=== PATIENT | female | born 1990 | race Hispanic/Latino ===

== ENCOUNTER 2018-03-26 19:41 | Emergency (ER) | payer BC, OTHER ==
[~2018-03-26] VITALS: Ht 157.5 cm; Wt 81.6 kg
--- NOTE | 2018-03-26 21:04 | Diagnostic Imaging Report ---
EXAMINATION: CHEST SINGLE (PORTABLE) INDICATION: ^CHEST PAIN COMPARISON: None FINDINGS: AP view TUBES and LINES: None. LUNGS: Lungs are not well inflated. Bilateral peribronchial cuffing. There is mild prominence of the central pulmonary vasculature, consistent with pulmonary venous congestion. PLEURA: No pleural effusion or pneumothorax. HEART AND MEDIASTINUM: The cardiomediastinal silhouette is unremarkable. BONES AND SOFT TISSUES: No acute osseous lesion. Soft tissues are unremarkable. UPPER ABDOMEN: No free air under the diaphragm. IMPRESSION: Peribronchial cuffing and central pulmonary venous congestion. This likely represent viral etiology or reactive airway. Signed by: Dr. Vamsi Sinha M.D. on 03/26/2018 9:01 PM
[2018-03-26] MEDS ORDERED: DEXAMETHASONE SOD PHOS 10 MG/1 ML VIAL IM NR (21:45)
[2018-03-26] MEDS ORDERED: ACETAMINOPHEN/CODEINE ELIX 120-12 MG/5 ML UDC NG ONE (22:30)
[2018-03-26] MEDS ORDERED: ACETAMINOPHEN/CODEINE 300MG - 30MG TAB PO ONE (23:00)
[2018-03-27] MEDS ORDERED: ALBUTEROL/IPRATROPIUM 3 ML NEB NEB ONE (00:30)
== END 2018-03-27 01:00 | disposition home or self-care (01) ==
LOC: ER 19:41
DX: R50.9 Fever, unspecified (principal); R05 Cough; J12.9 Viral pneumonia, unspecified; B34.9 Viral infection, unspecified
CPT/HCPCS: 71045; 87400; 94640; 99283; J1100; 83518

== ENCOUNTER 2018-06-02 16:30 | Emergency (ER) | payer OTHER ==
[~2018-06-02] VITALS: Ht 157.5 cm; Wt 93.9 kg
--- OUTSIDE RECORDS SUMMARY | 2018-06-02 16:32 | XMS REPORT ---
[facility] Unknown Phone Unavailable Care Team Providers Care Instrument Mechanic Name Role Phone Lucero GARRETT Unavailable Unavailable Problems This patient has no known problems. Allergies, Adverse Reactions, Alerts This patient has no known allergies or adverse reactions. Medications This patient has no known medications. Results Test Description Test Time Test Comments Text Results Atomic Results Result Comments CHEST SINGLE (PORTABLE) 2018-03-26 21:00:00 [place] [id number] Patient Name: MAKAYLA PEARCE MR #: [id number] : 1990 Age/Sex: 27/F Req #: [id number] Adm Physician: Ordered by: LAINEY GARRETT MD Report #: [id number] Location: ER Room/Bed: Procedure: [id number] DX/CHEST SINGLE (PORTABLE) Exam Date: 03/26/18 Exam Time: 2029 REPORT STATUS: Signed EXAMINATION: CHEST SINGLE (PORTABLE) INDICATION: CHEST PAIN COMPARISON: None FINDINGS: AP view TUBES and LINES: None. LUNGS: Lungs are not well inflated. Bilateral peribronchial cuffing. There is mild prominence of the central pulmonary vasculature, consistent with pulmonary venous congestion. PLEURA: No pleural effusion or pneumothorax. HEART AND MEDIASTINUM: The cardiomediastinal silhouette is unremarkable. BONES AND SOFT TISSUES: No acute osseous lesion. Soft tissues are unremarkable. UPPER ABDOMEN: No free air under the diaphragm. IMPRESSION: Peribronchial cuffing and central pulmonary venous congestion. This likely represent viral etiology or reactive airway. Signed by: Dr. Allison Sinha M.D. on 03/26/2018 9:01 PM Dictated By: ALLISON SINHA MD 00 Transcribed By: MARIELA on 03/26/182100 COPY TO: LAINEY GARRETT MD
[2018-06-02] MEDS ORDERED: ALBUTEROL/IPRATROPIUM 3 ML NEB NEB ONE ×2 (17:00)
[2018-06-02] MEDS ORDERED: METHYLPREDNISOLONE SOD SUCC 125 MG/2ML VIAL IV ONE (17:00)
[2018-06-02] MEDS ORDERED: SODIUM CHLORIDE 0.9% 1000ML 1,000 ML IV ONE (17:00)
[2018-06-02] MEDS ORDERED: ONDANSETRON HCL INJ 2MG/ML 2ML 2 MG/ML VIAL IV STA (17:07)
--- NOTE | 2018-06-02 17:58 | Diagnostic Imaging Report ---
EXAM: CXR 2 VIEW - HOPD, PA and lateral DATE: 06/02/2018 Time stamp on exam: 5:19 PM INDICATION: Cough and fever COMPARISON: None FINDINGS: LINES/TUBES: None LUNGS: No consolidations or edema. PLEURA: No effusions or pneumothorax. HEART AND MEDIASTINUM: Normal size and contour. BONES AND SOFT TISSUES: There is a significant sized rudimentary cervical rib on the right side. There are clips in the right upper quadrant of the abdomen from a previous cholecystectomy. IMPRESSION: 1. No acute thoracic abnormality. 2. Right cervical rib. Signed by: Dr. Omid Jc DO on 06/02/2018 5:54 PM
[2018-06-02] MEDS ORDERED: AZITHROMYCIN250 MG PO (18:21)
[2018-06-02] MEDS ORDERED: PREDNISONE20 MG PO (18:22)
[2018-06-02] MEDS ORDERED: CHERATUSSIN AC118 ML PO (18:25)
[2018-06-02] MEDS ORDERED: PROAIR HFA INH8.5 GM INH (18:30)
[2018-06-02 18:42] VITALS: BP 113/66
== END 2018-06-02 18:45 | disposition home or self-care (01) ==
LOC: FSED 16:30
DX: R50.9 Fever, unspecified (principal); R05 Cough; J02.9 Acute pharyngitis, unspecified; J20.8 Acute bronchitis due to other specified organisms
CPT/HCPCS: 71046; 80053; 81003; 81025; 85025; 87400; 99284; J2405; J2930; J7030

== ENCOUNTER 2019-07-22 12:56 | Emergency (ER) | payer BC, OTHER ==
[~2019-07-22] VITALS: Ht 162.6 cm; Wt 96.3 kg
[~2019-07-22 12:56] MED LIST: AZITHROMYCIN250 MG PO; CHERATUSSIN AC118 ML PO; PREDNISONE20 MG PO; PROAIR HFA INH8.5 GM INH
[2019-07-22] MEDS ORDERED: DIPHENHYDRAMINE HCL INJ 50 MG/ML VIAL IV ONE (13:45)
[2019-07-22] MEDS ORDERED: SODIUM CHLORIDE 0.9% 1000ML 1,000 ML IV SCH (13:45)
[2019-07-22] MEDS ORDERED: METOCLOPRAMIDE HCL 10 MG/2ML VIAL IV ONE (13:45)
[2019-07-22] MEDS ORDERED: METOCLOPRAMIDE HCL 10 MG/2ML VIAL ONE (14:05)
[2019-07-22] MEDS ORDERED: DIPHENHYDRAMINE HCL INJ 50 MG/ML VIAL ONE (14:05)
[2019-07-22] MEDS ORDERED: SODIUM CHLORIDE 0.9% 1000ML 1,000 ML ONE (14:05)
--- NOTE | 2019-07-22 14:52 | NUR ---
Contacted [facility] transfer center for transfer of pt to OB.
--- NOTE | 2019-07-22 14:58 | NUR ---
Contacted [facility] for transport to accepting facility
--- NOTE | 2019-07-22 15:30 | NUR ---
Called report to ERIK Lovelace at [facility] pt going to room 4
--- NOTE | 2019-07-22 15:47 | Diagnostic Imaging Report ---
Complete Abdominal Ultrasound History: abdominal pain Comparison: none Findings: Examination is significantly limited by patient body habitus. Grossly unremarkable appearance of the liver. The patient is status post cholecystectomy per clinical history. No sonographic Parks's sign. Common bile duct measures 2.4mm. Pancreas not well seen due to overlying bowel gas. Bilateral kidney demonstrates no definite hydronephrosis, shadowing calculus, or mass lesion. Right kidney measures 9.9 x 3.9 x 5.5cm. Left kidney measures 13.0 x 5.3 x 6.3cm. Normal size spleen measuring 12.5 cm in craniocaudal dimension. Normal caliber of the visualized abdominal aorta. No apparent filling defect in the visualized inferior vena cava. Incidental note is made of a single live intrauterine gestation, with heart rate of 174 bpm. It corresponds to an approximate sonographic age of 34 weeks. Impression: 1. Technically limited study due to patient body habitus. 2. Status post cholecystectomy. No definite acute sonographic findings in the abdomen. 3. Single live intrauterine gestation, corresponding to an approximate sonographic age of 34 weeks. Signed by: Edy Fletcher MD on 07/22/2019 3:44 PM
[2019-07-22 16:15] VITALS: BP 107/65
== END 2019-07-22 16:10 | disposition other institution (70) ==
LOC: FSED 12:56
DX: O26.93 Pregnancy related conditions, unspecified, third trimester (principal); R51 Headache; R10.11 Right upper quadrant pain; R10.31 Right lower quadrant pain; R11.0 Nausea; M54.5 Low back pain
CPT/HCPCS: 76700; 80048; 80076; 81003; 81025; 85025; 96374; 96375; 99284; J1200; J2765; J7030

== ENCOUNTER 2020-09-04 12:57 | Emergency (ER) | payer BC ==
[~2020-09-04] VITALS: Ht 162.6 cm; Wt 96.2 kg
[2020-09-04] MEDS ORDERED: SODIUM CHLORIDE 0.9% 1000ML 1,000 ML IV STA (14:39)
[2020-09-04] MEDS ORDERED: ONDANSETRON HCL INJ 2MG/ML 2ML 2 MG/ML VIAL IV PRN (14:45)
[2020-09-04 15:15] LABS: CLARITY,URINE SL CLOUDY (CLEAR); COLOR,URINE YELLOW (YELLOW); KETONES,URINE NEGATIVE (NEGATIVE); LEUKOCYTE ESTERASE ,URINE NEGATIVE (NEGATIVE); NITRITE,URINE NEGATIVE (NEGATIVE); PROTEIN,URINE DIPSTICK NEGATIVE (NEGATIVE); URINE UROBILINOGEN 1 mg/dL (0.2 - 1)
[2020-09-04] MEDS ORDERED: DICYCLOMINE HCL 20 MG/2 ML VIAL IM ONE (15:15)
[2020-09-04 15:18] LABS: BASOPHILS % 0.2 % (0.0-1.0); EOSINOPHILS # (AUTO) 0.2 (0.0-0.4); EOSINOPHILS % 1.9 % (0.0-6.0); HEMATOCRIT 37.1 % (34.2-44.1); HEMOGLOBIN 12.5 g/dL (12.0-16.0); LYMPHOCYTES # (AUTO) 1.9 (1.0-3.2); LYMPHOCYTES % 23.2 % (18.0-39.1); MEAN CORPUSCULAR HGB CONC 33.7 g/dL (31-35); MEAN CORPUSCULAR VOLUME 97.9 fL (81-99); MONOCYTES # (AUTO) 0.4 (0.2-0.8); MONOCYTES % 5.1 % (4.4-11.3); NEUTROPHILS # (AUTO) 5.7 (2.1-6.9); NEUTROPHILS % 69.4 % (38.7-80.0); PLATELET COUNT 277 x10e3/uL (140-360); RED BLOOD COUNT 3.79 x10e6/uL (3.6-5.1); RED CELL DISTRIBUTION WIDTH 13.2 % (11.7-14.4)
[2020-09-04 15:28] LABS: BACTERIA,URINE MODERATE /HPF; EPITHELIAL CELLS,URINE MANY /LPF
[2020-09-04 15:32] LABS: ALANINE AMINOTRANSFERASE 21 IU/L (0-55); ALBUMIN 3.6 g/dL (3.5-5.0); ALBUMIN/GLOBULIN RATIO 1.1 (0.8-2.0); ALKALINE PHOSPHATASE 62 IU/L (40-150); ANION GAP 10.6 mmol/L (8-16); BLOOD UREA NITROGEN 8 mg/dL (7-26); BUN/CREATININE RATIO 12 (6-25); CALCIUM 8.2 mg/dL (8.4-10.2); CARBON DIOXIDE 24 mmol/L (22-29); CHLORIDE 106 mmol/L (98-107); CREATININE, SERUM 0.65 mg/dL (0.57-1.11); EST GLOMERULAR FILTRATION RATE > 60 ML/MIN (60-); GLUCOSE 100 mg/dL (74-118); LIPASE 12 U/L (8-78); POTASSIUM 3.6 mmol/L (3.5-5.1); SODIUM 137 mmol/L (136-145)
[2020-09-04 15:39] LABS: HCG,QUANTITATIVE < 1.20 mIU/mL (0-10)
[2020-09-04] MEDS ORDERED: IOPAMIDOL 370 MG/ML 200 ML INFUS..BTL INJ ONE (15:56)
[2020-09-04] MEDS ORDERED: SODIUM CHLORIDE 0.9% 50ML 50 ML ONE (15:56)
[2020-09-04] MEDS ORDERED: DICYCLOMINE HCL10 MG PO (17:07)
[2020-09-04 17:48] VITALS: BP 122/62
== END 2020-09-04 17:49 | disposition home or self-care (01) ==
LOC: ER 14:38
DX: R10.30 Lower abdominal pain, unspecified (principal)
CPT/HCPCS: 36415; 74177; 80053; 81001; 83690; 84702; 85025; 99283; Q9967

== ENCOUNTER 2021-11-21 19:55 | Emergency (ER) | payer OTHER ==
[~2021-11-21] VITALS: Ht 162.6 cm; Wt 89.8 kg
[~2021-11-21 19:55] MED LIST changes: +DICYCLOMINE HCL10 MG PO
[2021-11-21] MEDS ORDERED: ALBUTEROL/IPRATROPIUM 3 ML NEB NEB ONE (23:15)
[2021-11-21] MEDS ORDERED: KETOROLAC TROMETHAMINE 60 MG/2 ML VIAL IM ONE (23:15)
[2021-11-21] MEDS ORDERED: KETOROLAC TROMETHAMINE 60 MG/2 ML VIAL ONE (23:22)
[2021-11-21] MEDS ORDERED: ALBUTEROL/IPRATROPIUM 3 ML NEB ONE (23:22)
[2021-11-22] MEDS ORDERED: PROVENTIL HFA6.7 GM INH (00:33)
[2021-11-22] MEDS ORDERED: NAPROSYN500 MG PO (00:34)
[2021-11-22] MEDS ORDERED: ULTRAM 50MG50 MG PO (00:34)
== END 2021-11-22 01:06 | disposition home or self-care (01) ==
LOC: FSED 21:57
DX: S39.011A Strain of muscle, fascia and tendon of abdomen, initial encounter (principal); J45.901 Unspecified asthma with (acute) exacerbation; R07.89 Other chest pain; R05.9 Cough, unspecified
CPT/HCPCS: 71046; 81003; 81025; 99283; J1885

== ENCOUNTER 2024-05-10 13:34 | Inpatient (IN) | payer OTHER ==
[~2024-05-10] VITALS: Ht 154.9 cm; Wt 94.8 kg
[~2024-05-10 13:34] MED LIST changes: +ACETAMINOPHEN-1 EAC4 PO; +CEFUROXIME500 MG PO; +IBUPROFEN600 MG PO; +LEVSIN-SL0.125 MG SL; +NAPROSYN500 MG PO; +ONDANSETRON ODT4 MG PO; +PANTOPRAZOLE SO40 MG PO; +PROVENTIL HFA6.7 GM INH; +ULTRAM 50MG50 MG PO
[2024-05-10] MEDS: ONDANSETRON HCL INJ 2MG/ML 2ML 2 MG/ML VIAL IV STA (14:51)
[2024-05-10] MEDS: Morphine 4mg INJECTION 4 MG/ML INJ IV ONE (14:52)
[2024-05-10] MEDS: AZITHROMYCIN 250 MG TAB PO ONE (14:52)
[2024-05-10] MEDS: KETOROLAC TROMETHAMINE 30 MG/ML VIAL IV STA (14:52)
[2024-05-10] MEDS: ACETAMINOPHEN 325 MG TAB PO ONE (14:53)
[2024-05-10] MEDS: ASPIRIN 81 MG CHEW TAB PO ONE (14:53)
[2024-05-10] MEDS: SODIUM CHLORIDE 0.9% 1000ML 1,000 ML IV ONE (14:54)
[2024-05-10 17:04] LABS: CREATINE KINASE 64 IU/L (29-168)
[2024-05-10 17:15] LABS: TROPONIN I < 0.001 ng/mL (0-0.300)
[2024-05-10] MEDS ORDERED: HYDROMORPHONE 2MG/ML IV PRN (20:15)
[2024-05-10] MEDS ORDERED: HYDROMORPHONE 1MG/1ML INJ IV PRN (20:30)
[2024-05-10] MEDS ORDERED: ACETAMINOPHEN 325 MG TAB ONE (21:56)
[2024-05-10] MEDS: SODIUM CHLORIDE 0.9% 1000ML 1,000 ML IV SCH ×2 (21:59→22:21)
[2024-05-10] MEDS ORDERED: ONDANSETRON HCL 4 MG ORAL DISINTEGRATING TAB PO PRN (22:00)
[2024-05-10] MEDS ORDERED: MELATONIN 5 MG TABLET PO PRN (22:00)
[2024-05-10] MEDS ORDERED: FAMOTIDINE 20 MG TAB PO PRN (22:00)
[2024-05-10] MEDS: ACETAMINOPHEN 325 MG TAB PO PRN (22:04)
[2024-05-10] MEDS: KETOROLAC TROMETHAMINE 30 MG/ML VIAL IV PRN (22:16)
[2024-05-10 22:39] VITALS: TEMP 98.3
[2024-05-10] MEDS: FENTANYL CITRATE/PF 100MCG/2 ML INJ IV ONE (23:47)
[2024-05-11] VITALS (12 sets, daily range): BP systolic 92–112; BP diastolic 54–65; PULSE 75–96; RESP 18–26; TEMP 97–99.6; O2SAT 96–100
[2024-05-11] MEDS: ONDANSETRON HCL INJ 2MG/ML 2ML 2 MG/ML VIAL IV PRN (03:15)
[2024-05-11] MEDS: Morphine 4mg INJECTION 4 MG/ML INJ IV PRN (03:15)
[2024-05-11 05:41] LABS: BASOPHILS % 0.2 % (0.0-1.0); EOSINOPHILS # (AUTO) 0.1 (0.0-0.4); EOSINOPHILS % 0.5 % (0.0-6.0); HEMATOCRIT 31.1 % (34.2-44.1); HEMOGLOBIN 10.3 g/dL (12.0-16.0); LYMPHOCYTES % 7.9 % (18.0-39.1); MEAN CORPUSCULAR HEMOGLOBIN 33.8 pg (28-32); MEAN CORPUSCULAR HGB CONC 33.1 g/dL (31-35); MONOCYTES # (AUTO) 0.8 (0.2-0.8); MONOCYTES % 6.2 % (4.4-11.3); NEUTROPHILS # (AUTO) 10.7 (2.1-6.9); NEUTROPHILS % 84.7 % (38.7-80.0); PLATELET COUNT 295 x10e3/uL (140-360); RED BLOOD COUNT 3.05 x10e6/uL (3.6-5.1); RED CELL DISTRIBUTION WIDTH 12.3 % (11.7-14.4); WHITE BLOOD COUNT 12.66 x10e3/uL (4.8-10.8)
[2024-05-11 06:22] LABS: ALBUMIN 2.4 g/dL (3.5-5.0); ALBUMIN/GLOBULIN RATIO 0.6 (0.8-2.0); ANION GAP 13.5 mmol/L (8-16); BILIRUBIN,TOTAL 0.5 mg/dL (0.2-1.2); CALCIUM 8.4 mg/dL (8.4-10.2); CREATININE, SERUM 0.62 mg/dL (0.57-1.11); POTASSIUM 3.5 mmol/L (3.5-5.1); TOTAL PROTEIN 6.5 g/dL (6.5-8.1)
[2024-05-11] MEDS: HEPARIN SOD (PORCINE) 5,000 UNIT/ML VIAL SC SCH (09:00)
[2024-05-11] MEDS ORDERED: ALBUTEROL SULF 0.083% NEB SOLN 3 ML NEB NEB PRN (09:00)
[2024-05-11] MEDS: GUAIFENESIN/CODEINE 5 ML LIQD PO PRN (09:27)
[2024-05-11] MEDS: CELECOXIB 200 MG CAP PO PRN (12:13)
[2024-05-11] MEDS: ALBUTEROL SULF 0.083% NEB SOLN 3 ML NEB NEB SCH (13:26)
[2024-05-11] MEDS: PROMETHAZINE/CODEINE 5 ML UDC PO PRN (14:33)
[2024-05-11 17:10] LABS: HIV 1&2 AB SCREEN NON-REACTIVE (NONREACTIVE); HIV- 1 P24 AG SCREEN NON-REACTIVE (NONREACTIVE)
[2024-05-12] VITALS (12 sets, daily range): BP systolic 94–106; BP diastolic 54–64; PULSE 71–101; RESP 18–21; TEMP 96.3–99.7; O2SAT 96–100
[2024-05-12 05:40] LABS: BASOPHILS % 0.1 % (0.0-1.0); EOSINOPHILS # (AUTO) 0.1 (0.0-0.4); EOSINOPHILS % 1.2 % (0.0-6.0); HEMATOCRIT 26.4 % (34.2-44.1); HEMOGLOBIN 8.8 g/dL (12.0-16.0); LYMPHOCYTES # (AUTO) 1.1 (1.0-3.2); LYMPHOCYTES % 14.6 % (18.0-39.1); MEAN CORPUSCULAR HEMOGLOBIN 33.5 pg (28-32); MEAN CORPUSCULAR HGB CONC 33.3 g/dL (31-35); MEAN CORPUSCULAR VOLUME 100.4 fL (81-99); MONOCYTES # (AUTO) 0.4 (0.2-0.8); MONOCYTES % 5.6 % (4.4-11.3); NEUTROPHILS # (AUTO) 6.1 (2.1-6.9); NEUTROPHILS % 78.1 % (38.7-80.0); PLATELET COUNT 278 x10e3/uL (140-360); RED BLOOD COUNT 2.63 x10e6/uL (3.6-5.1); RED CELL DISTRIBUTION WIDTH 12.6 % (11.7-14.4); WHITE BLOOD COUNT 7.81 x10e3/uL (4.8-10.8)
[2024-05-12 06:10] LABS: ALBUMIN 1.9 g/dL (3.5-5.0); ALBUMIN/GLOBULIN RATIO 0.5 (0.8-2.0); ANION GAP 11.3 mmol/L (8-16); BILIRUBIN,TOTAL 0.2 mg/dL (0.2-1.2); CALCIUM 7.9 mg/dL (8.4-10.2); CREATININE, SERUM 0.59 mg/dL (0.57-1.11); TOTAL PROTEIN 5.6 g/dL (6.5-8.1)
[2024-05-12 06:11] LABS: POTASSIUM 3.3 mmol/L (3.5-5.1)
[2024-05-12] MEDS: ENOXAPARIN SOD INJ 40 MG/0.4 ML SYR SC SCH (10:05)
[2024-05-12] MEDS: PANTOPRAZOLE SODIUM 20 MG TABLET.DR PO SCH (10:05)
[2024-05-13] VITALS (11 sets, daily range): BP systolic 82–139; BP diastolic 54–70; PULSE 75–93; RESP 16–28; TEMP 97.8–98.8; O2SAT 96–100
[2024-05-13 05:31] LABS: BASOPHILS % 0.1 % (0.0-1.0); EOSINOPHILS # (AUTO) 0.1 (0.0-0.4); EOSINOPHILS % 0.7 % (0.0-6.0); HEMATOCRIT 27.6 % (34.2-44.1); HEMOGLOBIN 9.2 g/dL (12.0-16.0); LYMPHOCYTES # (AUTO) 0.9 (1.0-3.2); LYMPHOCYTES % 10.9 % (18.0-39.1); MEAN CORPUSCULAR HEMOGLOBIN 33.7 pg (28-32); MEAN CORPUSCULAR HGB CONC 33.3 g/dL (31-35); MEAN CORPUSCULAR VOLUME 101.1 fL (81-99); MONOCYTES # (AUTO) 0.4 (0.2-0.8); MONOCYTES % 4.7 % (4.4-11.3); NEUTROPHILS # (AUTO) 7.2 (2.1-6.9); PLATELET COUNT 325 x10e3/uL (140-360); RED BLOOD COUNT 2.73 x10e6/uL (3.6-5.1); RED CELL DISTRIBUTION WIDTH 12.7 % (11.7-14.4); WHITE BLOOD COUNT 8.64 x10e3/uL (4.8-10.8)
[2024-05-13 05:49] LABS: ALANINE AMINOTRANSFERASE 21 IU/L (0-55); ALBUMIN 2.1 g/dL (3.5-5.0); ALBUMIN/GLOBULIN RATIO 0.5 (0.8-2.0); ALKALINE PHOSPHATASE 154 IU/L (40-150); ANION GAP 12.6 mmol/L (8-16); BILIRUBIN,TOTAL 0.3 mg/dL (0.2-1.2); BLOOD UREA NITROGEN < 5 mg/dL (7-26); CALCIUM 8.7 mg/dL (8.4-10.2); CARBON DIOXIDE 22 mmol/L (22-29); CHLORIDE 105 mmol/L (98-107); CREATININE, SERUM 0.61 mg/dL (0.57-1.11); EST GLOMERULAR FILTRATION RATE 123 ML/MIN (>=60); GLUCOSE 99 mg/dL (74-118); POTASSIUM 3.6 mmol/L (3.5-5.1); SODIUM 136 mmol/L (136-145); TOTAL PROTEIN 6.2 g/dL (6.5-8.1)
[2024-05-13 05:52] LABS: BUN/CREATININE RATIO 8 (6-25)
[2024-05-13] MEDS: Vancomycin IV 1 GM in SODIUM CHLORIDE 0.9% 250ML 250 ML IV SCH (09:22)
[2024-05-13] MEDS ORDERED: SODIUM CHLORIDE 0.9% 1000ML 1,000 ML IV ONE (12:56)
[2024-05-13] MEDS: SODIUM CHLORIDE 0.9% 1000ML 1,000 ML IV ONE (13:52)
[2024-05-13 17:00] LABS: FREE T4 (FREE THYROXINE) 0.96 ng/dL (0.8-1.8); THYROID STIMULATING HORMONE 1.916 uIU/mL (0.350-4.940)
[2024-05-13] MEDS: BENZONATATE 100 MG CAP PO SCH (20:52)
[2024-05-14] VITALS (10 sets, daily range): BP systolic 101–117; BP diastolic 50–98; PULSE 66–102; RESP 18–20; TEMP 97.3–98.9; O2SAT 93–100
[2024-05-14 06:54] LABS: BASOPHILS % 0.1 % (0.0-1.0); EOSINOPHILS # (AUTO) 0.1 (0.0-0.4); EOSINOPHILS % 0.8 % (0.0-6.0); HEMATOCRIT 27.7 % (34.2-44.1); HEMOGLOBIN 9.3 g/dL (12.0-16.0); LYMPHOCYTES # (AUTO) 1.1 (1.0-3.2); LYMPHOCYTES % 13.3 % (18.0-39.1); MEAN CORPUSCULAR HEMOGLOBIN 33.5 pg (28-32); MEAN CORPUSCULAR HGB CONC 33.6 g/dL (31-35); MEAN CORPUSCULAR VOLUME 99.6 fL (81-99); MONOCYTES # (AUTO) 0.4 (0.2-0.8); NEUTROPHILS # (AUTO) 6.9 (2.1-6.9); NEUTROPHILS % 81.2 % (38.7-80.0); PLATELET COUNT 327 x10e3/uL (140-360); RED BLOOD COUNT 2.78 x10e6/uL (3.6-5.1); RED CELL DISTRIBUTION WIDTH 12.6 % (11.7-14.4); WHITE BLOOD COUNT 8.49 x10e3/uL (4.8-10.8)
[2024-05-14 06:55] LABS: POTASSIUM 3.7 mmol/L (3.5-5.1)
[2024-05-14 06:56] LABS: ALBUMIN 2.1 g/dL (3.5-5.0); ALBUMIN/GLOBULIN RATIO 0.5 (0.8-2.0); ANION GAP 12.7 mmol/L (8-16); BILIRUBIN,TOTAL 0.3 mg/dL (0.2-1.2); CALCIUM 8.6 mg/dL (8.4-10.2); CREATININE, SERUM 0.6 mg/dL (0.57-1.11); TOTAL PROTEIN 6.3 g/dL (6.5-8.1)
[2024-05-14 15:07] LABS: LEGIONELLA ANTGEN (U) Negative (Negative)
[2024-05-14 15:08] LABS: S PNEUMO AG Negative
[2024-05-14 21:21] LABS: ANION GAP 15.9 mmol/L (8-16); CALCIUM 9.6 mg/dL (8.4-10.2); CREATININE, SERUM 0.69 mg/dL (0.57-1.11); POTASSIUM 3.9 mmol/L (3.5-5.1)
[2024-05-15] VITALS (11 sets, daily range): BP systolic 96–120; BP diastolic 49–78; PULSE 69–90; RESP 17–20; TEMP 97.3–98.2; O2SAT 96–100
[2024-05-15 06:32] LABS: BASOPHILS % 0.1 % (0.0-1.0); EOSINOPHILS # (AUTO) 0.1 (0.0-0.4); EOSINOPHILS % 1.9 % (0.0-6.0); HEMATOCRIT 28.7 % (34.2-44.1); HEMOGLOBIN 9.5 g/dL (12.0-16.0); LYMPHOCYTES # (AUTO) 1.2 (1.0-3.2); LYMPHOCYTES % 18.4 % (18.0-39.1); MEAN CORPUSCULAR HEMOGLOBIN 33.6 pg (28-32); MEAN CORPUSCULAR HGB CONC 33.1 g/dL (31-35); MEAN CORPUSCULAR VOLUME 101.4 fL (81-99); MONOCYTES # (AUTO) 0.2 (0.2-0.8); MONOCYTES % 3.4 % (4.4-11.3); NEUTROPHILS # (AUTO) 5.1 (2.1-6.9); NEUTROPHILS % 75.5 % (38.7-80.0); PLATELET COUNT 347 x10e3/uL (140-360); RED BLOOD COUNT 2.83 x10e6/uL (3.6-5.1); RED CELL DISTRIBUTION WIDTH 12.3 % (11.7-14.4); WHITE BLOOD COUNT 6.74 x10e3/uL (4.8-10.8)
[2024-05-15 06:51] LABS: ALBUMIN 2.3 g/dL (3.5-5.0); ALBUMIN/GLOBULIN RATIO 0.5 (0.8-2.0); ANION GAP 13.8 mmol/L (8-16); BILIRUBIN,TOTAL 0.2 mg/dL (0.2-1.2); CALCIUM 9.2 mg/dL (8.4-10.2); CREATININE, SERUM 0.6 mg/dL (0.57-1.11); POTASSIUM 3.8 mmol/L (3.5-5.1); TOTAL PROTEIN 6.6 g/dL (6.5-8.1)
[2024-05-16] VITALS (11 sets, daily range): BP systolic 95–117; BP diastolic 51–78; PULSE 75–89; RESP 18; TEMP 97.6–98.4; O2SAT 95–100
[2024-05-16 06:10] LABS: BASOPHILS % 0.3 % (0.0-1.0); EOSINOPHILS # (AUTO) 0.1 (0.0-0.4); EOSINOPHILS % 1.6 % (0.0-6.0); HEMATOCRIT 30.9 % (34.2-44.1); HEMOGLOBIN 10.2 g/dL (12.0-16.0); LYMPHOCYTES # (AUTO) 1.1 (1.0-3.2); LYMPHOCYTES % 16.6 % (18.0-39.1); MONOCYTES # (AUTO) 0.3 (0.2-0.8); MONOCYTES % 4.9 % (4.4-11.3); NEUTROPHILS # (AUTO) 5.1 (2.1-6.9); NEUTROPHILS % 76.2 % (38.7-80.0); PLATELET COUNT 372 x10e3/uL (140-360); RED BLOOD COUNT 3.09 x10e6/uL (3.6-5.1); RED CELL DISTRIBUTION WIDTH 12.3 % (11.7-14.4); WHITE BLOOD COUNT 6.69 x10e3/uL (4.8-10.8)
[2024-05-16 06:48] LABS: ALBUMIN 2.4 g/dL (3.5-5.0); ALBUMIN/GLOBULIN RATIO 0.6 (0.8-2.0); ANION GAP 12.7 mmol/L (8-16); BILIRUBIN,TOTAL 0.2 mg/dL (0.2-1.2); CALCIUM 8.7 mg/dL (8.4-10.2); CREATININE, SERUM 0.63 mg/dL (0.57-1.11); MAGNESIUM 2.2 MG/DL (1.3-2.1); POTASSIUM 3.7 mmol/L (3.5-5.1); TOTAL PROTEIN 6.6 g/dL (6.5-8.1)
[2024-05-16 06:58] LABS: FERRITIN 256.41 ng/mL (4.63-204.00)
[2024-05-16] MEDS: FOLIC ACID 1 MG TAB PO SCH (12:12)
[2024-05-17] VITALS (10 sets, daily range): BP systolic 88–105; BP diastolic 53–76; PULSE 61–92; RESP 18–20; TEMP 97.9–98.4; O2SAT 94–99
[2024-05-17 05:38] LABS: BASOPHILS % 0.4 % (0.0-1.0); EOSINOPHILS # (AUTO) 0.1 (0.0-0.4); EOSINOPHILS % 1.1 % (0.0-6.0); HEMATOCRIT 34.7 % (34.2-44.1); HEMOGLOBIN 11.3 g/dL (12.0-16.0); LYMPHOCYTES # (AUTO) 1.4 (1.0-3.2); LYMPHOCYTES % 18.6 % (18.0-39.1); MEAN CORPUSCULAR HEMOGLOBIN 33.1 pg (28-32); MEAN CORPUSCULAR HGB CONC 32.6 g/dL (31-35); MEAN CORPUSCULAR VOLUME 101.8 fL (81-99); MONOCYTES # (AUTO) 0.4 (0.2-0.8); MONOCYTES % 4.9 % (4.4-11.3); NEUTROPHILS # (AUTO) 5.5 (2.1-6.9); NEUTROPHILS % 74.3 % (38.7-80.0); PLATELET COUNT 408 x10e3/uL (140-360); RED BLOOD COUNT 3.41 x10e6/uL (3.6-5.1); RED CELL DISTRIBUTION WIDTH 12.4 % (11.7-14.4); WHITE BLOOD COUNT 7.35 x10e3/uL (4.8-10.8)
[2024-05-17 06:16] LABS: ANION GAP 13.9 mmol/L (8-16); CREATININE, SERUM 0.67 mg/dL (0.57-1.11); POTASSIUM 3.9 mmol/L (3.5-5.1)
[2024-05-17] MEDS ORDERED: DOXYCYCLINE HY100 MG PO (08:06)
[2024-05-17] MEDS ORDERED: BENZONATATE200 MG PO (08:07)
[2024-05-17] MEDS ORDERED: FOLIC ACID0.4 MG PO (08:18)
[2024-05-18 07:30] LABS: METHYLMALONIC ACID URINE 9.2
== END 2024-05-17 18:35 | disposition home or self-care (01) | DRG 178 ==
LOC: FSED 13:59 → ERHOLD 20:05 → MED/SURG2 05-11 01:20 → OBSVTOIN 05-11 08:52
PROVIDERS: ADMIT Family Medicine Adult Medicine; ATTEND Family Medicine Adult Medicine
DX: J15.212 Pneumonia due to Methicillin resistant Staphylococcus aureus (principal); E46 Unspecified protein-calorie malnutrition; D52.9 Folate deficiency anemia, unspecified; J45.909 Unspecified asthma, uncomplicated; E66.01 Morbid (severe) obesity due to excess calories; Z68.39 Body mass index [BMI] 39.0-39.9, adult; Z71.3 Dietary counseling and surveillance; R79.1 Abnormal coagulation profile; I49.3 Ventricular premature depolarization; R00.0 Tachycardia, unspecified; M48.061 Spinal stenosis, lumbar region without neurogenic claudication; M51.26 Other intervertebral disc displacement, lumbar region; M47.26 Other spondylosis with radiculopathy, lumbar region; M85.9 Disorder of bone density and structure, unspecified; R33.9 Retention of urine, unspecified; R53.1 Weakness; Z11.52 Encounter for screening for COVID-19; Z86.19 Personal history of other infectious and parasitic diseases; Z87.891 Personal history of nicotine dependence; Z77.22 Contact with and (suspected) exposure to environmental tobacco smoke (acute) (chronic); Z57.31 Occupational exposure to environmental tobacco smoke; Z79.899 Other long term (current) drug therapy; Z79.1 Long term (current) use of non-steroidal anti-inflammatories (NSAID)
CPT/HCPCS: 36415; 71046; 71260; 72148; 80048; 80053; 80076; 80202; 81025; 82550; 82607; 82728; 82746; 83540; 83735; 83921; 84439; 84443; 84466; 84484; 85025; 85379; 87040; 87070; 87116; 87186; 87205; 87206; 87390; 87449; 87899; 93005; 94640; 94799; 99284; G0378; G0433; G0435; J0295; J0696; J1644; J1650; J1885; J2270; J2405; J7030; J7050